=== PATIENT | female | born 1995 | race Caucasian/White ===

== ENCOUNTER → 2024-10-26 13:55 | Outpatient (REF) | payer BC, SELFPAY | LOC: HWRAD 13:55 | PROVIDERS: ATTENDING PHYSICIAN Nurse Practitioner Women's Health; FAMILY PHYSICIAN Family Medicine | DX: N91.2 Amenorrhea, unspecified (principal); Z34.90 Encounter for supervision of normal pregnancy, unspecified, unspecified trimester | CPT/HCPCS: 76801 ==

== ENCOUNTER → 2025-01-02 08:09 | Outpatient (REF) | payer BC, SELFPAY | LOC: PNTC 08:09 | PROVIDERS: ATTENDING PHYSICIAN Physician Assistant Medical | DX: Z36.89 Encounter for other specified antenatal screening (principal) | CPT/HCPCS: 76805; 76817 ==